=== PATIENT | male | born 1990 | race Hispanic/Latino ===

== ENCOUNTER 2016-11-08 20:13 | Inpatient (IN) | payer MEDICAID, OTHER ==
[2016-11-08 20:13] VITALS: BMI 28.7
--- NOTE | 2016-11-08 21:20 | C.PDOC ---
History Of Present Illness 26 year old patient presents to the ED pre-screened detox from heroin. Patient admits his last use was today. Patient states he uses by IV. He had prior admissions for detox in April 2016 and July 2016. Patient denies any physical complaints, suicidal or homicidal ideation. Time Seen by Provider: 11/08/16 20:52 Chief Complaint (Nursing): Substance Abuse History Per: Patient History/Exam Limitations: no limitations Onset/Duration Of Symptoms: Other Current Symptoms Are (Timing): Still Present Suicide/Self Injury Attempted (Context): None Modifying Factor(s): Other (heroin) Severity: None Pain Scale Rating Of: 0 Recent travel outside of the [place]: No Past Medical History Reviewed: Historical Data, Nursing Documentation, Vital Signs Vital Signs: Last Vital Signs Temp 98.8 F 11/08/16 20:46 Pulse 71 11/08/16 20:46 Resp 20 11/08/16 20:46 BP 141/71 11/08/16 20:46 Pulse Ox 97 11/08/16 21:19 - [facility] Procedures DETOXIFICATION SERVICES FOR SUBSTANCE ABUSE TREATMENT (07/13/16) 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 Constitutional: Negative for: Fever Respiratory: Negative for: Shortness of Breath Gastrointestinal: Negative for: Nausea, Vomiting Psych: Negative for: Suicidal ideation Physical Exam - Physical Exam Appears: Non-toxic, No Acute Distress Skin: Warm, Dry, No Rash, Other (track cano to the left anticubital ) Head: Atraumatic, Normacephalic Eye(s): bilateral: Other (pinpoint pupils) Neck: Normal ROM, Supple Chest: Symmetrical Cardiovascular: Rhythm Regular Respiratory: Normal Breath Sounds, No Rales, No Rhonchi, No Wheezing Back: Normal Inspection Extremity: Normal ROM Neurological/Psych: Oriented x3, Normal Motor, Normal Sensation Gait: Steady ED Course And Treatment - Laboratory Results Result Diagrams: 11/08/16 21:25 11/08/16 21:25 Lab Interpretation: Abnormal (tox + opiates, UA neg. etoh neg.) O2 Sat by Pulse Oximetry: 97 (room air) Pulse Ox Interpretation: Normal Progress Note: Plan: Labs Reevaluation Time: 22:19 Reassessment Condition: Improved - Physician Consult Information Outcome Of Conversation: 2220: d/w Crisis- ok to Detox Disposition Doctor Will See Patient In The: Hospital Counseled Patient/Family Regarding: Studies Performed, Diagnosis - Disposition Disposition: HOSPITALIZED Disposition Time: 22:20 Condition: GOOD - Clinical Impression Clinical Impression: Opioid abuse - Scribe Statement The provider has reviewed the documentation as recorded by the Scribe Vicky Johnson Provider Attestation: All medical record entries made by the Scribe were at my direction and personally dictated by me. I have reviewed the chart and agree that the record accurately reflects my personal performance of the history, physical exam, medical decision making, and the department course for this patient. I have also personally directed, reviewed, and agree with the discharge instructions and disposition.
[2016-11-08 21:32] LABS: BASO % 0.4 % (0.0-2.0); EOS % 0.5 % (0.0-4.0); HEMATOCRIT 40.9 % (35.0-51.0); LYMPH # 3.1 K/uL (1.0-4.3); LYMPH % 36.1 % (20.0-40.0); MEAN CELL VOLUME 91.4 fL (80.0-94.0); MEAN CORPUSCULAR HEMOGLOBIN 30.9 pg (27.0-31.0); MEAN CORPUSCULAR HGB CONC 33.8 g/dL (33.0-37.0); MEAN PLATELET VOLUME 8.4 fL (7.2-11.7); MONO # 0.5 K/uL (0.0-0.8); MONO % 5.6 % (0.0-10.0); WHITE BLOOD COUNT 8.7 K/uL (4.8-10.8)
[2016-11-08 21:37] LABS: RBC URINE < 1 /hpf (0-3); URINE BILIRUBIN NEGATIVE (NEGATIVE); URINE BLOOD NEGATIVE (NEGATIVE); URINE COLOR Yellow (YELLOW); URINE GLUCOSE (UA) NORMAL (Normal); URINE KETONE TRACE mg/dL (NEGATIVE); URINE LEUKOCYTE ESTERASE NEG Leu/uL (Negative); URINE PROTEIN NEGATIVE (NEGATIVE); URINE UROBILINOGEN NORMAL mg/dL (0.2-1.0); WBC URINE < 1 /hpf (0-5)
[2016-11-08 21:49] LABS: CHLORIDE 98 mmol/L (98-107)
[2016-11-08 21:50] LABS: POTASSIUM 4.2 mmol/L (3.6-5.2); SODIUM 138 mmol/L (132-148)
[2016-11-08 21:52] LABS: ALB/GLOB RATIO 1.3 (1.0-2.1); ALKALINE PHOSPHATASE 44 U/L (38-126); AST/SGOT 17 U/L (17-59); BILIRUBIN,TOTAL 0.5 mg/dL (0.2-1.3); BLOOD UREA NITROGEN 15 mg/dL (9-20); CARBON DIOXIDE 30 mmol/L (22-30); GFR AFRICAN-AMERICAN > 60; TOTAL PROTEIN 7.6 g/dL (6.3-8.3)
[2016-11-08 21:53] LABS: ALCOHOL SERUM < 10 mg/dl (0-10); ALT/SGPT 13 U/L (21-72); GLUCOSE,RANDOM 107 mg/dL (75-110)
[2016-11-08] MEDS ORDERED: Aluminum Hydroxide/Magnesium Hydroxide Susp (30 mL) PO PRN (22:31)
[2016-11-08 22:41] VITALS: RESP 18
--- NOTE | 2016-11-09 10:55 | PCM.PSYCH ---
Initial Psychiatric Evaluation - Initial Psychiatric Evaluation Type of Admission: Voluntary Legal Status: Capacity Chief Complaint (in patient's own words): "Heroin" History of Present Illness and Precipitating Events: This is a 26 yo WM, single with one child (6 m/o living with pt's GF in [place]). 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 He says he was here for detox but relapsed after a friend of his OD'ed and . He went to a program, [facility], which was not helpful as well. He now uses 20-30 bags of heroin IV for few months Denies alcohol and all other drugs but smokes 1/2 ppd Denies psych sxs He wants to go to a rehab but then follow with [facility] shot Past psych hx: denies Medical hx: denies Family psych hx: denies Current Medications: Active Medications Generic Name Dose Route Start Last Admin Trade Name Freq PRN Reason Stop Dose Admin Al Hydrox/Mg Hydrox/Simethicone 30 ml 11/08/16 22:31 Maalox 30 Ml PO TID PRN Indigestion / Heartburn Clonidine HCl 0.1 mg 11/08/16 22:31 Catapres PO Q8 PRN COWS Score More or Equal to 5 Hydroxyzine HCl 50 mg 11/08/16 22:32 Atarax PO Q6H PRN Anxiety Ibuprofen 600 mg 11/08/16 22:32 Motrin Tab PO Q6H PRN Pain, moderate (4-7) Loperamide HCl 2 mg 11/08/16 22:31 Imodium PO Q8 PRN Diarrhea Methadone HCl 20 mg 11/09/16 11:00 Methadone PO 11/09/16 11:01 ONCE ONE Nicotine 1 patch 11/09/16 10:45 Nicoderm Cq TD DAILY TAVO Ondansetron HCl 4 mg 11/08/16 22:31 Zofran Tab PO Q8 PRN Nausea/Vomiting Pneumococcal Polyvalent Vaccine 0.5 ml 11/12/16 10:00 Pneumovax 23 Vaccine IM 11/12/16 10:01 .ONCE ONE Trazodone HCl 100 mg 11/08/16 22:32 Desyrel PO HS PRN Insomnia Past Psychiatric History - Past Psychiatric History Previous Treatment History: None Pertinent Medical Hx (Current Medical&Sleep Prob, Allergies): Allergies Allergy/AdvReac Type Severity Reaction Status Date / Time mushroom Allergy Verified 11/08/16 20:49 olive oil Allergy Verified 11/08/16 20:49 onion Allergy Verified 11/08/16 20:49 olive Allergy Uncoded 11/08/16 20:49 No Known Home Med 07/13/16 Review of Systems - Psychiatric Psychiatric: Abnormal Sleep Pattern, Anxiety. absent: Hallucinations, Homicidal Ideation, Paranoia, Suicidal Ideation Mental Status Examination - Personal Presentation Personal Presentation: Looks stated age - Affect Affect: Constricted - Motor Activity Motor Activity: Calm - Reliability in Providing Information Reliability in Providing Information: Good - Speech Speech: Organized - Mood Mood: Anxious - Formal Thought Process Formal Thought Process: No Impairment - Cognitive Functions Orientation: Person, Place, Situation, Time Sensorium: Alert Attention/Concentration: Attentive Estimate of Intelligence: Average Judgement: Intact, as evidence by: Insight regarding need for hospitalization Memory: Recent intact, as evidence by: Ability to recall events of the day, Remote intact, as evidenced by: Abilit to recall sig. life events - Risk Risk: Withdrawal, Diminished functioning - Strength & Assets Inventory Strength & Assets Inventory: Cooperative - Limitations Limitations: Living alone DSM 5 DX - DSM 5 DSM 5 Diagnosis: Opioid withdrawal Opioid use d/o - severe Tobacco use d/o - moderate - Recommended/Plan of Treatment Treatment Recommendations and Plan of Treatment: Methadone detox - refusing subutex As needed meds Attend groups and activities MS and CBT Support and psychoed Nicotine patch for tobacco MS and CBT for abstinence 33 min Projected ELOS: 4 days Prognosis: good with treatment Discharge Plan and Discharge Criteria: No wdw sxs Refer to MAT and rehab - Smoking Cessation Smoking Cessation Initiated: Yes
[2016-11-10 11:09] VITALS: BP 120/82; PULSE 84; TEMP 97.8; O2SAT 95
--- NOTE | 2016-11-10 11:48 | PCM.PYCHPN ---
Psychiatric Progress Note - Psychiatric Progress Note Patient seen today, length of contact: 17 min Patient Chief Complaint: "I was withdrawing last night" Problems Identified/Issues Discussed: The pt is seen, chart reviewed, case discussed with staff. The pt is compliant with medications and reports no side-effects. Symptoms are improving but needs more time to stabilize. After care discussed, he wants short term rehab and then Vivitrol shot, support given support and psychoeducation given. Medication Change: Yes (detox changes daily) Medical Record Reviewed: Yes Mental Status Examination - Cognitive Function Orientation: Person, Place, Situation, Time Memory: Intact Attention: WNL Concentration: WNL Association: WNL Fund of Knowledge: WNL - Mood Mood: Anxious - Affect Affect: Constricted - Speech Speech: Appropriate - Formal Thought Process Formal Thought Process: No Impairment - Suicidal Ideation Suicidal Ideation: No - Homicidal Ideation Homicidal Ideation: No Goal/Treatment Plan - Goal/Treatment Plan Need for Continued Stay: Discharge may exacerbated symptoms, Severe functional impairment Progress Toward Problem(s) and Goals/Treatment Plan: Methadone detox - refusing subutex As needed meds Attend groups and activities HI and CBT Support and psychoed Nicotine patch for tobacco HI and CBT for abstinence Estimated Date of D/C: 11/12/16
--- NOTE | 2016-11-10 21:50 | PCM.PYCHDC ---
Mental Status Examination - Mental Status Examination Orientation: Person, Place, Situation, Time Memory: Intact Mood: Anxious Affect: Constricted Speech: Appropriate Attention: WNL Concentration: Poor Association: WNL Fund of Knowledge: WNL Formal Thought Process: No Impairment Suicidal Ideation: No Current Homicidal Ideation?: No Discharge Summary - Discharge Note Reason for Hospitalization: Opioid detox Consultations:: List each consultation separately and include: 1. Reason for request. 2. Findings. 3. Follow-up Summary of Hospital Course include:: 1. Description of specific treatment plan utilized for patients during their course of treatmen. 2. Summarize the time- course for resolution of acute symptoms and/or regressed behaviors. 3. Describe issues identified and worked on during hospitalization. 4. Describe medication utilized. 5. Describe medical problems identified and treated. 6. Reassessment of suicide risk Summary of Hospital Course: On admission: This is a 26 yo WM, single with one child (6 m/o living with pt's GF in [place]). 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 He says he was here for detox but relapsed after a friend of his OD'ed and . He went to a program, [facility], which was not helpful as well. He now uses 20-30 bags of heroin IV for few months Denies alcohol and all other drugs but smokes 1/2 ppd Denies psych sxs He wants to go to a rehab but then follow with [facility] Hospital course: See today's progress note too. The pt was put on methaodne and he was improving, attending groups and indiv tx , TX/CBt etc. However, suddenly, he asked for discharge. It was very impulsive as he has so much to lose (on probation and has open DY case), plus he is on the middle of his detox. He is warned against risks, incl. relapse, od and even and he still left. DYFS is informed as he later admitted that he lives with his GF and their 6 month old child. - Final Diagnosis (DSM 5) Condition upon Discharge: IMPROVED DSM 5: Opioid withdrawal Opioid use d/o - severe Tobacco use d/o - moderate Disposition: AGAINST MEDICAL ADVICE Follow-up Treatment Plan: return to ER if needed Stay away from drugs, alcohol Go to NA Consider [facility]
[2016-11-12] MEDS ORDERED: Pneumococcal 23-Valent Vaccine IM ONE (10:00)
== END 2016-11-10 13:30 | disposition left against medical advice (07) | DRG 743 ==
LOC: C.ER 20:13 → C.7D 22:18
PROVIDERS: ADMIT Psychiatry & Neurology Psychiatry; ATTEND Psychiatry & Neurology Psychiatry
PROC: HZ81ZZZ Medication Management for Substance Abuse Treatment, Methadone Maintenance (ICD-10-PCS; principal; 2016-11-08)
PROC: HZ2ZZZZ Detoxification Services for Substance Abuse Treatment (ICD-10-PCS; 2016-11-08)
PROC: HZ42ZZZ Group Counseling for Substance Abuse Treatment, Cognitive-Behavioral (ICD-10-PCS; 2016-11-08)
DX: F11.23 Opioid dependence with withdrawal (principal); F17.210 Nicotine dependence, cigarettes, uncomplicated